=== PATIENT | female | born 1955 | race Two or more races ===

== ENCOUNTER → 2021-01-16 | Outpatient (CLI) | payer MEDICAID | END | disposition home or self-care (01) | LOC: CVU 14:02 | PROVIDERS: ATTEND Internal Medicine Cardiovascular Disease | DX: I08.1 Rheumatic disorders of both mitral and tricuspid valves (principal); R55 Syncope and collapse | CPT/HCPCS: 93306; 93880 ==

== ENCOUNTER 2021-03-04 16:25 | Emergency (ER) | payer SELFPAY ==
[~2021-03-04] VITALS: Ht 160 cm; Wt 55.8 kg
[2021-03-04] MEDS ORDERED: SODIUM CHLORIDE FLUSH 10ML SYR IVF ONE (18:00)
[2021-03-04] MEDS ORDERED: SODIUM CHLORIDE 0.9% 1,000ML IVBOLUS ONE (18:00)
[2021-03-04 18:31] LABS: BASOPHILS % (AUTO) 0 % (0-1); EOSINOPHILS % (AUTO) 0 % (1-7); LYMPHOCYTES % (AUTO) 19 % (22-44); MEAN CORPUSCULAR HEMOGLOBIN 29.6 pg (27.0-34.8); MEAN CORPUSCULAR HGB CONC 33.7 g/dL (32.4-35.8); MEAN PLATELET VOLUME 8.5 fL (7.4-10.4); MONOCYTES % (AUTO) 4 % (2-9); NEUTROPHILS % (AUTO) 77 % (42-75); PLATELET COUNT 266 x10^3/uL (130-400); RED BLOOD COUNT 4.45 x10^6/uL (3.82-5.3); RED CELL DISTRIBUTION WIDTH 13.2 % (9.6-15.2)
[2021-03-04 18:33] LABS: MD NO
[2021-03-04 18:49] LABS: ALBUMIN 3.9 g/dL (3.4-5.0); ANION GAP 8 mmol/L (5-15); CALCIUM 8.9 mg/dL (8.5-10.1); CHLORIDE 104 mmol/L (98-107)
[2021-03-04 18:56] LABS: CREATININE 0.69 mg/dL (0.55-1.02); TROPONIN I < 0.015 ng/mL (0.000-0.045)
--- NOTE | 2021-03-04 19:10 | NUR ---
Late entry summary note due to pt care: Pt and report pt has been experiencing near syncope events multiple times a day for 3 months. Pt wore a Holter monitor for 1 month for this, nothing seen. Pt experienced one event that this RN witness, nothing noted on the monitor. BP 110/59 during event. Pt's reports the first time this type of even occured she peed herself and the pt doesn't always remember the event. Pt denies any hx. MD Rosas to bedside. Pt was ambulatory to bathroom with steady gait.
--- NOTE | 2021-03-04 19:11 | NUR ---
Report received from RAMSES Cole. This RN to assume care.
--- NOTE | 2021-03-04 19:15 | NUR ---
Pt ambulatory to bathroom with steady gait. Report to RAMSES HOLT.
[2021-03-04 19:20] LABS: MICROSCOPIC NOT IND
--- NOTE | 2021-03-04 19:45 | NUR ---
Patient and family member report patient forgetting things frequently over the last 6 months. ERP notified. Awaiting recheck.
[2021-03-04 20:36] VITALS: BP 107/69
== END 2021-03-04 20:54 | disposition home or self-care (01) ==
LOC: ED 19:28
DX: R55 Syncope and collapse (principal); R42 Dizziness and giddiness; R07.89 Other chest pain; F17.200 Nicotine dependence, unspecified, uncomplicated
CPT/HCPCS: 36415; 71045; 80048; 81003; 82040; 84484; 85025; 93005; 96360; 99285; J7030

== ENCOUNTER 2021-06-11 06:23 | Day surgery (SDC) | payer MEDICAID ==
[~2021-06-11] VITALS: Ht 165.1 cm; Wt 62.0 kg
[2021-06-11] MEDS ORDERED: ISOPROTERENOL 0.2MG/ML, 5ML ONE (07:48)
== END 2021-06-11 08:40 | disposition home or self-care (01) ==
LOC: OUT 06:23
PROVIDERS: ATTEND Internal Medicine Clinical Cardiac Electrophysiology
DX: R55 Syncope and collapse (principal); Z87.891 Personal history of nicotine dependence
CPT/HCPCS: 93660